=== PATIENT | male | born 1975 | race Caucasian/White ===

== ENCOUNTER 2019-07-28 10:37 | Emergency (ER) | payer SELFPAY ==
[~2019-07-28] VITALS: Ht 170.2 cm; Wt 131.5 kg
[2019-07-28 12:45] VITALS: BP 142/70
== END 2019-07-28 13:39 | disposition home or self-care (01) ==
LOC: ER 10:37
DX: J06.9 Acute upper respiratory infection, unspecified (principal); H66.91 Otitis media, unspecified, right ear; F12.10 Cannabis abuse, uncomplicated
CPT/HCPCS: 71046

== ENCOUNTER 2020-01-26 13:05 | Inpatient (IN) | payer SELFPAY ==
[~2020-01-26] VITALS: Ht 170.2 cm; Wt 138.2 kg
[2020-01-26] MEDS ORDERED: ASPirin 81 mg TAB PO ONE ×2 (13:30)
[2020-01-26] MEDS ORDERED: NITROGLYCERIN 0.4 MG SL TAB SL ONE (13:30)
[2020-01-26 13:47] LABS: Basophils # (auto) 0.1 10 ^3/uL (0-0.2); Basophils % (auto) 0.7 % (0.0-2.0); Eosinophils # (auto) 0.3 10 ^3/uL (0-0.8); Eosinophils % (auto) 2.7 % (0.0-7.0); Hematocrit 46.8 % (41.0-53.0); Hemoglobin 15.7 g/dL (13.5-17.5); Lymphocytes # (auto) 4.3 10 ^3/uL (0.4-5.4); Lymphocytes % (auto) 34.8 % (10.0-50.0); Mean Corpuscular Hemoglobin 29.1 pg (28.0-32.0); Mean Corpuscular Hgb Conc. 33.5 g/dL (32.0-36.0); Neutrophils # (auto) 6.6 10 ^3/uL (1.6-8.6); Neutrophils % (auto) 53.8 % (37.0-80.0); Nucleated Red Blood Cells % 0.2 %; Platelet Count (auto) 333 10^3/uL (140-450); Red Blood Cells 5.38 10^6/uL (4.5-5.90); White Blood Cell 12.2 10^3/uL (4.4-10.8)
[2020-01-26 13:59] LABS: Albumin 3.6 g/dL (3.4-5.0); Anion Gap 5 (5-15); Blood Urea Nitrogen 9 mg/dL (7-18); Calcium 8.5 mg/dL (8.5-10.1); Carbon Dioxide 27 mmol/L (21-32); Chloride 107 mmol/L (98-107); Glucose 135 mg/dL (74-106); Potassium 3.5 mmol/L (3.5-5.1); Sodium 139 mmol/L (136-145)
[2020-01-26 14:04] LABS: Alanine Aminotransferase 64 U/L (16-61); Alkaline Phosphatase 51 U/L (45-117); Aspartate Aminotransferase 23 U/L (15-37); BUN/Creatinine Ratio 10.8; Bilirubin, Total 0.3 mg/dL (0.2-1.0); GFR African American 131 mL/min; GFR Non-African American 108 mL/min; Total Protein 6.5 g/dL (6.4-8.2)
[2020-01-26] MEDS ORDERED: cloNIDine HCL 0.1 MG TAB PO ONE (17:15)
[2020-01-26 19:28] LABS: Amphetamine Screen, Urine NEGATIVE (NEGATIVE); Barbiturate Scree,Urine NEGATIVE (NEGATIVE); Benzodiazephine Screen, Urine NEGATIVE (NEGATIVE); Cannabinoid Screen, Urine POSITIVE (NEGATIVE); Cocaine Screen, Urine NEGATIVE (NEGATIVE); Opiate Scree,Urine NEGATIVE (NEGATIVE); Phencyclidine Screen, Urine NEGATIVE (NEGATIVE)
[2020-01-26 19:33] LABS: Urine Bacteria FEW /hpf (None Seen); Urine Blood Negative /uL (Negative); Urine Mucus FEW (None Seen); Urine Specific Gravity 1.009 (1.001-1.035); Urine WBC 2 /hpf (0 - 3)
[2020-01-26] MEDS ORDERED: TEMAZEPAM 15 MG CAP PO PRN (22:30)
[2020-01-26] MEDS ORDERED: NITROGLYCERIN 0.4 MG SL TAB SL PRN (22:30)
[2020-01-26] MEDS ORDERED: ONDANSETRON HCL 4 MG/2 ML VIAL IV PRN (22:30)
[2020-01-26] MEDS ORDERED: ACETAMINOPHEN 325 MG TAB PO PRN (22:30)
[2020-01-26] MEDS ORDERED: MORPHINE SULF INJ 2 MG/ML SYRINGE 1ML IV PRN (22:30)
[2020-01-27] VITALS (7 sets, daily range): BP systolic 125–148; BP diastolic 80–96
--- NOTE | 2020-01-27 01:10 | NUR ---
Telemetry admit from ER JOHN WHATLEY admitted to Telemetry unit after SBAR received. Patient oriented to Val Garcia, primary RN, unit, room, bed, and unit policies regarding patient care and visiting hours. Patient now on continuous telemetry monitoring, tele box # 78 and telemetry reading on arrival to unit is sinus rhythm. Patient placed on bedside oxygen, weighed by bedscale and encouraged to call if they need something. All questions and concerns addressed, patient verbalized understanding. Note:
--- NOTE | 2020-01-27 06:57 | NUR ---
Patient has no complains of pain, no signs of respiratory distress. All needs attended to. Report will be given to oncoming RN.
[2020-01-27 07:01] LABS: Basophils # (auto) 0.1 10 ^3/uL (0-0.2); Eosinophils # (auto) 0.2 10 ^3/uL (0-0.8); Eosinophils % (auto) 1.6 % (0.0-7.0); Hematocrit 48.8 % (41.0-53.0); Hemoglobin 16.4 g/dL (13.5-17.5); Lymphocytes # (auto) 2.9 10 ^3/uL (0.4-5.4); Mean Corpuscular Hemoglobin 29.3 pg (28.0-32.0); Mean Corpuscular Hgb Conc. 33.6 g/dL (32.0-36.0); Mean Corpuscular Volume 87.2 fL (80.0-100.0); Monocytes # (auto) 0.7 10 ^3/uL (0-1.3); Neutrophils % (auto) 64.4 % (37.0-80.0); Nucleated Red Blood Cells % 0.1 %; Platelet Count (auto) 336 10^3/uL (140-450); Red Cell Distribution Width 13.9 % (11.8-14.3); White Blood Cell 10.9 10^3/uL (4.4-10.8)
[2020-01-27 07:20] LABS: Chloride 108 mmol/L (98-107); Sodium 139 mmol/L (136-145)
[2020-01-27 07:30] LABS: Anion Gap 5 (5-15); BUN/Creatinine Ratio 11.5; Blood Urea Nitrogen 9 mg/dL (7-18); Calcium 8.7 mg/dL (8.5-10.1); Carbon Dioxide 26 mmol/L (21-32); GFR African American 140 mL/min; GFR Non-African American 116 mL/min; Glucose 95 mg/dL (74-106)
--- NOTE | 2020-01-27 07:30 | NUR ---
Opening Shift Note Assumed care of patient, awake and alert. No S/S of distress/SOB or pain. Instructed on POC and to call for assist PRN, will continue to monitor for changes Q1hr and PRN. Bed is locked and in lowest position. Call light within reach.
[2020-01-27] MEDS ORDERED: LISINOPRIL 5 MG TAB PO SCH (10:00)
[2020-01-27] MEDS: ASPirin 81 mg TAB PO SCH (10:10)
[2020-01-27] MEDS: FAMOTIDINE 20 MG TAB PO SCH ×2 (10:10→21:28)
[2020-01-27] MEDS ORDERED: METOPROLOL TARTRATE 25 MG TAB PO ONE (11:45)
[2020-01-27] MEDS ORDERED: CLOPIDOGREL BISULFATE 75 MG TAB PO ONE (11:45)
[2020-01-27 12:27] LABS: Cholesterol 175 mg/dL (< 200); HDL Cholesterol 33 mg/dL (40-59); LDL Cholesterol 125 mg/dL (< 100); Triglycerides 148 mg/dL (< 150)
--- NOTE | 2020-01-27 13:30 | NUR ---
PATIENT OFF UNIT FOR FIRST PART OF STRESS TEST. PATIENT TRANSPORTED VIA WHEELCHAIR. WILL AWAIT PATIENT RETURN.
[2020-01-27] MEDS ORDERED: OPTISON 3ml Vial for INJ IV ONE (15:31)
--- NOTE | 2020-01-27 18:00 | NUR ---
IV insertion IV access obtained, via clean sterile technique by inserting [20] gauge catheter at [RIGHT FOREARM] after [2] attempt(s). IV secured properly. No trauma to site. Patient tolerated well.
--- NOTE | 2020-01-27 19:30 | NUR ---
Opening Shift Note Assumed care of patient, awake and alert. No S/S of distress/SOB or pain. Instructed on POC and to call for assist PRN, will continue to monitor for changes Q1hr and PRN.
[2020-01-27] MEDS: METOPROLOL TARTRATE 25 MG TAB PO SCH (21:27)
[2020-01-27] MEDS ORDERED: ATORVASTATIN 20 MG TAB PO SCH (22:00)
[2020-01-28 09:00] VITALS: BP 130/76
--- NOTE | 2020-01-28 09:00 | NUR ---
PATIENT WENT FOR STRESS TEST VIA WHEELCHAIR. PATIENT TOLERATED TRANSPORT WELL WITH NO SIGNS OF DISTRESS. WILL AWAIT PATIENT RETURN.
[2020-01-28] MEDS ORDERED: ADENOSINE 120 MG in GIVE UN-DILUTED 0 ML IV STA (09:13)
[2020-01-28] MEDS ORDERED: CLOPIDOGREL BISULFATE 75 MG TAB PO SCH (10:00)
[2020-01-28] MEDS ORDERED: LISINOPRIL 10 MG TAB PO SCH (10:00)
[2020-01-28] MEDS: ASPirin 81 mg TAB PO SCH (11:17)
[2020-01-28] MEDS: FAMOTIDINE 20 MG TAB PO SCH ×2 (11:17→23:00)
[2020-01-28] MEDS: METOPROLOL TARTRATE 25 MG TAB PO SCH (11:20)
[2020-01-28 13:00] VITALS: BP 146/90
[2020-01-28] MEDS ORDERED: ASPI-378 PO (13:40)
[2020-01-28] MEDS ORDERED: ATOR10TA PO (13:40)
[2020-01-28] MEDS ORDERED: LISI-646 PO (13:40)
[2020-01-28 17:00] VITALS: BP 137/77
--- NOTE | 2020-01-28 19:30 | NUR ---
Opening Shift Note Assumed care of patient, awake and alert x4. No S/S of distress/SOB or pain. Instructed on POC and to call for assist PRN. Call light in reach. Bed in lowest, locked position. Bed rails up x2. Will continue to monitor for changes Q1hr and PRN. Signed: 01/28/20 at 2108 by SN JEN <Co-Signature Required> Co-Signed: 01/28/20 at 2108 by DARRYL PARHAM RN
[2020-01-28 22:00] VITALS: BP 114/52
[2020-01-28] MEDS ORDERED: ATORVASTATIN 20 MG TAB PO SCH (22:55)
--- NOTE | 2020-01-29 05:05 | NUR ---
Assumed care of patient from JAYDON Ramirez. Patient resting comfortably in bed with no signs of distress. Will continue to assess. Addendum: 01/29/20 at 0642 by DARRYL PARHAM RN Wrong patient. Disregard
[2020-01-29 05:30] VITALS: BP 148/90
[2020-01-29 09:00] VITALS: BP 125/75
[2020-01-29 09:57] LABS: Basophils # (auto) 0.1 10 ^3/uL (0-0.2); Eosinophils # (auto) 0.2 10 ^3/uL (0-0.8); Lymphocytes # (auto) 2.9 10 ^3/uL (0.4-5.4); Mean Corpuscular Hgb Conc. 33.9 g/dL (32.0-36.0); Nucleated Red Blood Cells % 0.1 %; Red Cell Distribution Width 13.9 % (11.8-14.3)
[2020-01-29 09:59] LABS: Basophils % (auto) 0.7 % (0.0-2.0); Eosinophils % (auto) 1.3 % (0.0-7.0); Hematocrit 52.6 % (41.0-53.0); Hemoglobin 17.8 g/dL (13.5-17.5); Lymphocytes % (auto) 23.3 % (10.0-50.0); Mean Corpuscular Hemoglobin 29.2 pg (28.0-32.0); Mean Corpuscular Volume 86.3 fL (80.0-100.0); Monocytes % (auto) 8.3 % (0.0-12.0); Neutrophils # (auto) 8.4 10 ^3/uL (1.6-8.6); Neutrophils % (auto) 66.4 % (37.0-80.0); Platelet Count (auto) 363 10^3/uL (140-450); Red Blood Cells 6.09 10^6/uL (4.5-5.90); White Blood Cell 12.6 10^3/uL (4.4-10.8)
[2020-01-29] MEDS ORDERED: LISINOPRIL 10 MG TAB PO SCH (10:00)
[2020-01-29] MEDS: ASPirin 81 mg TAB PO SCH (10:07)
[2020-01-29] MEDS: FAMOTIDINE 20 MG TAB PO SCH (10:07)
[2020-01-29 10:13] LABS: Albumin 4.2 g/dL (3.4-5.0); BUN/Creatinine Ratio 16.9; Calcium 8.9 mg/dL (8.5-10.1); Potassium 4.2 mmol/L (3.5-5.1)
[2020-01-29 10:16] LABS: Bilirubin, Total 0.7 mg/dL (0.2-1.0); Total Protein 7.7 g/dL (6.4-8.2)
[2020-01-29 10:35] LABS: INR 0.99 (0.9-1.15); Partial Thromboplastin Time 27.4 sec (23.0-31.2)
--- NOTE | 2020-01-29 12:10 | NUR ---
Nutrition Assessment Note please see attached link for complete assessment Est Energy needs ABW 102 k-2040kcals (17-20kcal/kgABW), Est Protein needs: 102-112 gms/day (1.0-1.1 gm/kgABW). Will continue to monitor and reassess prn Addendum: 01/29/20 at [address] Amended: Links added.
[2020-01-29] MEDS ORDERED: LIDOCAINE 2%HCL (LOCAL ANESTH.) INJ 20ML MDV ONE (12:34)
[2020-01-29] MEDS ORDERED: IOHEXOL 350 MG/ML 100ML IJ ONE ×2 (12:35→13:11)
[2020-01-29] MEDS ORDERED: HEPARIN SODIUM (PORCINE) 5000 UNITS/ML 1ML VIAL ONE (12:38)
[2020-01-29] MEDS ORDERED: fentaNYL CITRATE 100 MCG/2 ML VL ONE (12:38)
[2020-01-29] MEDS ORDERED: VERAPAMIL 2.5MG/ML INJ 2ML VIAL IV ONE (12:38)
[2020-01-29] MEDS ORDERED: ANGIOMAX 250 MG VIAL IV ONE (12:38)
[2020-01-29] MEDS ORDERED: MIDAZOLAM HCL 1MG/1ML-2 ML VIAL ONE (12:39)
[2020-01-29] MEDS ORDERED: SODIUM CHL 0.9% 0 ML ONE (12:39)
[2020-01-29 14:34] VITALS: BP 143/80
--- NOTE | 2020-01-29 16:40 | NUR ---
assessment Patient is a 44 year old male who is alert and oriented. Patients cognitive abilities are intact. Prior to admission patient lived home with family and functioned independently. Patient informed me he is able to care for his own ADLs. Per patient he will return home to his prior living arrangements post discharge and family will transport him home. Patient has no insurance. Patient has been assessed by Dane Quiroz of [facility]. Patient is over income. I have provided patient with resources for [facility], [facility], and [facility] urgent care for follow up visits. I have provided patient with a prescription card from community assistance program. Patient has no post discharge needs identified at this time. I informed patient he has a right to speak to a social media marketing manager regarding all care. I informed patient he has a right to participate in any and all discharge planning. Patient does not have a POA and advanced directive. I have offered patient information on POA and advanced directives. I informed the patient the advantages and benefits of having an Advanced Directive. Patient verbalized understanding and agreed to discharge plan. Addendum: 01/29/20 at 1642 by Thea SIMONS Amended: Links added.
[2020-01-29 16:46] VITALS: BP 148/77
--- NOTE | 2020-01-29 17:25 | NUR ---
OFF FLOOR FOR LEFT HEART CATH, RETURNED TO FLOOR AT 1425 WITH BAND TO RIGHT WRIST IN PLACE. 2 ML AIR REMOVED Q 15 MINUTES. BAND REMOVED AT 1630. PRESSURE DRESSING APPLIED. NO BLEEDING NOTED.
[2020-01-29 17:27] VITALS: BP 148/77
--- NOTE | 2020-01-29 19:01 | NUR ---
DISCHARGE INSTRUCTIONS GIVEN TO PT. VERBALIZED UNDERSTANDING. ALL APPROPRIATE PAPERWORK SIGNED. IV AND TELE BOX REMOVED. PT DISCHARGED HOME WITH FAMILY.
== END 2020-01-29 18:50 | disposition home or self-care (01) | DRG 286 ==
LOC: ER 13:05 → TELE 13:06 → TELE-WESTW 23:44 → UNDODISIN 01-28 16:30
PROVIDERS: ADMIT Nurse Practitioner; ATTEND Internal Medicine
PROC: 4A023N7 Measurement of Cardiac Sampling and Pressure, Left Heart, Percutaneous Approach (ICD-10-PCS; principal; 2020-01-29)
PROC: B2111ZZ Fluoroscopy of Multiple Coronary Arteries using Low Osmolar Contrast (ICD-10-PCS; 2020-01-29)
PROC: B2151ZZ Fluoroscopy of Left Heart using Low Osmolar Contrast (ICD-10-PCS; 2020-01-29)
DX: R07.89 Other chest pain (principal); I50.33 Acute on chronic diastolic (congestive) heart failure; R65.10 Systemic inflammatory response syndrome (SIRS) of non-infectious origin without acute organ dysfunction; F12.90 Cannabis use, unspecified, uncomplicated; I11.0 Hypertensive heart disease with heart failure; E78.5 Hyperlipidemia, unspecified; G47.30 Sleep apnea, unspecified; E66.01 Morbid (severe) obesity due to excess calories; Z82.49 Family history of ischemic heart disease and other diseases of the circulatory system; Z83.3 Family history of diabetes mellitus; Z71.51 Drug abuse counseling and surveillance of drug abuser
CPT/HCPCS: 36415; 71046; 78452; 80048; 80053; 80061; 80307; 81001; 83880; 84443; 84484; 85025; 85379; 85610; 85730; 86850; 86900; 86901; 93005; 93017; 93306; 93458; 99152; 99153; G0378; J0153; J2250; Q9956